=== PATIENT | male | born 2000 | race Asian ===

== ENCOUNTER 2023-03-01 18:20 | Inpatient (IN) ==
[2023-03-01 18:55] LABS: Appearance Urine Clear (Clear); Bilirubin Urine Negative (Negative); Blood Urine Negative (Negative); Color Urine Yellow; Glucose Urine UA Negative (Negative); Ketones Urine Negative (Negative); Leukocyte Esterase Urine Negative (Negative); Nitrite Urine Negative (Negative); Protein Urine Negative (Negative); Specific Gravity Urine 1.016 (1.000-1.030); Urobilinogen Urine Negative (Negative); pH Urine 5.5 (4.5-7.5)
--- NOTE | 2023-03-01 19:06 | Emergency Department Note ---
Impression & Plan Suicidal ideation ED Provider Note NAME: ORLANDO ALCAZAR AGE: 22 SEX: M : 2000 ARRIVES VIA: [employer] INFORMANT: [Patient] ED PROVIDER(S): [Justus Nguyen MD] CHIEF COMPLAINT: Mental health evaluation HISTORY OF PRESENT ILLNESS: The patient is a 22-year-old male who states that he has felt sad and depressed for about 4 months. He blames himself for some of it but he states that his studies at school, his family and his relationship with his girlfriend are to blame. He does not feel happy anymore. The patient did go to counseling at [facility] for his feelings. He actually saw a counselor yesterday. Today, he felt worse. He texted his counselor that he did not know what to do and the police were sent to his residence to check on him. He was brought for evaluation by police. The patient states that he has had some suicidal thoughts. He has thought about overdosing or using a firearm although, he has no access to firearms. The patient is currently voluntary and asking for a mental health admission. PMHx/PSHx/Social Hx: See Below PHYSICAL EXAM: GENERAL: Patient is in no acute distress. HEENT: No acute trauma, normocephalic atraumatic, mucous membranes moist, no nasal congestion. NECK: No stridor, no adenopathy, no meningismus, trachea is midline. LUNGS: Clear to auscultation bilaterally, no wheeze, no rhonchi, breath sounds equal. HEART: Without murmurs gallops or rubs, regular rate and rhythm. ABDOMEN: Soft, nontender, no peritonitis. EXTREMITIES: No cyanosis, full range of motion of all the joints without pain or difficulty. NEUROLOGIC: Oriented x 3, no acute motor or sensory deficits, no focal weakness. SKIN: No jaundice, no diaphoresis. Psychiatric: Cooperative, flat affect, voluntary. Admits to suicidal ideation with a potential plan to overdose. DIFFERENTIAL DIAGNOSIS: Psychosis, depression, anxiety, electrolyte imbalance, thyroid disorder, suicidality, among others. EMERGENCY DEPARTMENT PROCEDURES: MEDICAL DECISION MAKING: There is no leukocytosis or concerning anemia. There is a normal platelet count. No renal failure or significant electrolyte abnormality. No concerning liver enzyme elevation. The patient appeared to be in a euthyroid state. Urinalysis did not show infection. Aspirin, Tylenol and alcohol levels were undetectable. Urine tox was negative. COVID test was negative. On exam, the patient had a flattened affect and did admit to some suicidal ideation. He apparently had researched medications to take in overdose. The patient was voluntary. He was felt medically clear. The patient was seen by psychiatry case management. After some discussion, the patient did decide to sign into the psychiatric hospital voluntarily. The patient was seen by our psychiatry service, 3 S. He was accepted to their floor. The appropriate paperwork was completed and signed. Prior/Outside records/notes reviewed: None. Imaging/x-ray results per my interpretation: Chronic Medical/Social conditions affecting care: College student Care/Management discussed with: Psychiatry case management. Level of care consideration(s): After review of the information above and other included data: --I believe the patient requires escalation of care to admission DISPOSITION: Voluntary admission to the psychiatric floor Past Med/Surg History Medical History No significant medical problems Social History Smoking Status: Never smoker Preferred Language: Maltese Feels Safe at Home: Hesitant to Answer Gender Identity: Male Results & Data (ED) Vital Signs Vital Signs - 24 hr 03/01/23 18:30 03/01/23 22:03 Temperature 36.7 C Temperature Source Oral Pulse Rate 70 Pulse Rate [Right Finger] 76 Pulse Rhythm [Right Finger] Regular Pulse Strength [Right Finger] Normal Respiratory Rate 14 16 Respiratory Effort / Characteristics Non-Labored Spontaneous Respiratory Depth Normal Respiratory Pattern Regular Blood Pressure 122/86 Blood Pressure [Right Arm] 128/74 Blood Pressure Mean 98 Blood Pressure Mean [Right Arm] 92 Pulse Oximetry 97 99 Oxygen Delivery Method Room Air Room Air Sepsis New/Unexplained Change in Mental Status No Sepsis Action Taken by Nursing No Action Required Home Medications Current Medication List: was personally reviewed by me Laboratory Data Attestation: I reviewed the patient's lab results. 03/01/23 18:52 03/01/23 18:52 Lab Results 03/01/23 03/01/23 Range/Units 18:36 18:52 WBC 6.36 (4.8-10.8) K/ul RBC 5.15 (4.70-6.10) M/uL Hgb 15.3 (14.0-18.0) g/dl Hct 45.0 (42.0-52.0) % MCV 87.4 (80.0-100.0) fL MCH 29.7 (25.0-34.0) pg MCHC 34.0 (32.0-36.0) g/dL RDW Std Deviation 38.9 (36.4-46.3) fL RDW Coeff of Miguel 12.1 (11.5-14.5) % Plt Count 264 (130-400) K/uL MPV 8.4 L (9.4-12.4) fL Immature Gran % (Auto) 0.2 % Neut % (Auto) 61.5 % Lymph % (Auto) 28.1 % [place] % (Auto) 6.6 % Eos % (Auto) 3.3 % Baso % (Auto) 0.3 % Neut # (Auto) 3.91 (1.40-6.50) K/uL Lymph # (Auto) 1.79 (1.20-3.40) K/uL [place] # (Auto) 0.42 (0.11-0.59) K/uL Eos # (Auto) 0.21 (0.00-0.50) K/uL Baso # (Auto) 0.02 (0.00-0.20) K/uL Immature Gran # (Auto) 0.01 (0.01-0.20) K/uL Sodium 137 (136-145) mmol/L Potassium 4.0 (3.5-5.1) mmol/L Chloride 103 (98-107) mmol/L Carbon Dioxide 26 (21-32) mmol/L Anion Gap 8 (3-11) BUN 18 (6-23) mg/dl Creatinine 0.89 (0.6-1.4) mg/dl Est Cr Clr Drug Dosing 149.8 ml/min Est GFR ( Amer) 142.7 ml/min Est GFR (Non-Af Amer) 123.1 ml/min BUN/Creatinine Ratio 20.2 H (10-20) Glucose 82 (70-99(Fasting)) mg/dl Calcium 9.8 (8.6-10.3) mg/dl Total Bilirubin 1.1 H (0.2-1.0) mg/dl AST 10 L (13-39) U/L ALT 7 (7-52) U/L Alkaline Phosphatase 88 (34-104) U/L Total Protein 7.9 (6.0-8.3) gm/dl Albumin 4.9 (3.4-5.0) gm/dl Globulin 3.0 (2.5-4.0) gm/dl Albumin/Globulin Ratio 1.6 (0.9-2) TSH 2.322 (0.300-4.500) uIu/ml Urine Color Yellow Urine Appearance Clear (Clear) Urine pH 5.5 (4.5-7.5) Ur Specific [place] 1.016 (1.000-1.030) Urine Protein Negative (Negative) Urine Glucose (UA) Negative (Negative) Urine Ketones Negative (Negative) Urine Blood Negative (Negative) Urine Nitrite Negative (Negative) Urine Bilirubin Negative (Negative) Urine Urobilinogen Negative (Negative) Ur Leukocyte Esterase Negative (Negative) Salicylates < 3.0 L (3.0-30) mg/dl Urine Opiates Screen Neg (Neg) Ur Methadone, Qual Neg (Neg) Acetaminophen < 3 L (10-30) ug/ml Urine Barbiturates Neg (Neg) Ur Phencyclidine (PCP) Neg (Neg) U Amphetamin/Meth Scrn Neg (Neg) MDMA (Ecstasy) Screen Neg (Neg) U Benzodiazepines Scrn Neg (Neg) Ur Cocaine Metabolite Neg (Neg) U Marijuana (THC) Screen Neg (Neg) Ethyl Alcohol mg/dL < 10.0 (<10.0) mg/dl SARS-CoV-2, RNA, NAAT NEGATIVE (NEGATIVE) Discharge Plan Visit Data Chief Complaint: Mental Health Evaluation Stated Complaint: [facility] ED Provider: Justus Nguyen Discharge Problem: Suicidal ideation Patient Disposition: Admitted As Inpatient Condition: Good
[2023-03-01 19:21] LABS: Albumin Globulin Ratio 1.6 (0.9-2); Albumin Level 4.9 gm/dl (3.4-5.0); BUN Creatinine Ratio 20.2 (10-20); Basophils # (auto) 0.02 K/uL (0.00-0.20); Basophils % (auto) 0.3 %; Bilirubin,Total 1.1 mg/dl (0.2-1.0); Calcium 9.8 mg/dl (8.6-10.3); Creatinine Clr Calc Pharmacy 149.8 ml/min; Eosinophils # (auto) 0.21 K/uL (0.00-0.50); Eosinophils % (auto) 3.3 %; Est GFR (African American) 142.7 ml/min; Est GFR (Non-African American) 123.1 ml/min; Hemoglobin 15.3 g/dl (14.0-18.0); Immature Granulocytes # (auto) 0.01 K/uL (0.01-0.20); Immature Granulocytes % (auto) 0.2 %; Lymphocytes # (auto) 1.79 K/uL (1.20-3.40); Lymphocytes % (auto) 28.1 %; Mean Corpuscular Hemoglobin 29.7 pg (25.0-34.0); Mean Corpuscular Volume 87.4 fL (80.0-100.0); Mean Platelet Volume 8.4 fL (9.4-12.4); Monocytes # (auto) 0.42 K/uL (0.11-0.59); Monocytes % (auto) 6.6 %; Neutrophils # (auto) 3.91 K/uL (1.40-6.50); Neutrophils % (auto) 61.5 %; Platelet Count 264 K/uL (130-400); RDW Coefficient of Variation 12.1 % (11.5-14.5); RDW Standard Deviation 38.9 fL (36.4-46.3); Red Blood Count 5.15 M/uL (4.70-6.10); Total Protein 7.9 gm/dl (6.0-8.3); White Blood Count 6.36 K/ul (4.8-10.8)
[2023-03-01 19:27] LABS: Acetaminophen < 3 ug/ml (10-30); Salicylate < 3.0 mg/dl (3.0-30)
[2023-03-01 19:28] LABS: Amphetamines+Metham, Urine Neg (Neg); Barbiturates, Urine Neg (Neg); Benzodiazepine, Urine Neg (Neg); Cocaine, Urine Neg (Neg); MDMA (Ecstacy), Urine Neg (Neg); Marijuana, Urine Neg (Neg); Methadone, Urine Neg (Neg); Opiate, Urine Neg (Neg); Phencyclidine, Urine Neg (Neg)
[2023-03-01 19:36] LABS: Thyroid Stimulating Hormone 2.322 uIu/ml (0.300-4.500)
[2023-03-01] MEDS ORDERED: ALUMINUM/MAGNESIUM SUSP 30 ML UDC PO PRN (23:40)
[2023-03-01] MEDS ORDERED: BISMUTH SUBSALICYLATE LIQD 236 ML PO PRN (23:40)
[2023-03-01] MEDS ORDERED: hydrOXYzine HCl 25 MG TAB PO PRN ×2 (23:40)
[2023-03-01] MEDS ORDERED: MAGNESIUM HYDROXIDE SUSP 30 ML UDC PO PRN (23:40)
[2023-03-01] MEDS ORDERED: SODIUM CHLORIDE 0.65% NA SOLN 45 ML (OCEAN) PRN (23:40)
[2023-03-01] MEDS ORDERED: ACETAMINOPHEN 325 MG TAB PO PRN (23:40)
[2023-03-02] MEDS ORDERED: Patient's ALLERGY Info needs ENTERED STA (00:02)
[2023-03-02 08:22] LABS: Chol HDL Ratio 3.5 (0-5)
[2023-03-02 08:46] LABS: Folate (Folic Acid),Ser orPlas 7.92 ng/ml (>5.38)
[2023-03-02] MEDS ORDERED: CITALOPRAM 20 MG TAB PO STA (16:51)
[2023-03-02] MEDS: ERGOCALCIFEROL 50,000 UNITS 1250 MCG CAP PO SCH (18:15)
--- NOTE | 2023-03-02 22:43 | History & Physical ---
Date of Service March 02, 2023 Impression / Recommendations Impression 22 y/o man with 6-month history of worsening depression, suicidal ruminations, pervasive anxiety. He's pleasant and cooperative but profoundly depressed. He has no history of psychiatric diagnosis or treatment. Risks and benefits of, and alternatives to, the use of duloxetine (Cymbalta) for Major Depression and Generalized Anxiety Disorder symptoms were reviewed. This discussion included but was not limited to issues known potentially to be associated with use of such medication, especially at high doses or with longer use, including sedation, weight gain, GI side effects, or rarely elevated blood pressure or severe diaphoresis. Discussed the need to avoid abrupt cessation due to risk of discontinuation syndrome. The patient agreed to start a trial of duloxetine. He was found to have a significant vitamin D deficiency which will need to be treated. Overall I spent a total of 79 minutes on the floor for this admission including review of chart records, review of test results, direct evaluation of the patient [id number], counseling the patient, reconciling and ordering medication, medication education with the patient, risk assessment, discussion during interdisciplinary treatment rounds, and documentation in the electronic health record. (1) Major depressive disorder, single episode, severe without psychotic features: (2) HALIMA (generalized anxiety disorder): (3) Vitamin D deficiency: Plan The patient was admitted to the [facility] on q15 minute checks (behavioral with suicide precautions) for safety.The patient will participate in group, recreational, and milieu therapies and will be offered additional individual and family sessions as clinically appropriate. * start duloxetine 20 mg daily, titrate rapidly to target of 60 mg daily * start egocalciferol 50,000 IU twice weekly Inventory Assets Strengths: supportive relationships, has local supports, voluntary, good insight, intelligent Needs: safety and stabilization, medication adjustment, additional coping skills, outpatient services Suicide Risk Level Suicide Risk Level: High-Moderate (q15 min suicide checks) (denies current ideation but is profoundly depressed and recently preoccupied for formulating a foolproof suicide plan) Risk Factors Assessment Male: Yes : No Do You Have Access To A Gun?: No Health Problems: No Mental Health Diagnoses: No Substance Use Disorders: No Previous Attempt: No Family History of Suicide: No Previous Psychiatric Hospitalization: No Hopelessness: Yes Protective Factors Assessment : No Responsible for Young Children: No Employed: No Stable Relationships: Yes Supportive Family: Yes Good Rapport with Provider: Yes Psychiatric History Identifying Data ORLANDO ALCAZAR is a 22-year-old M who currently lives in [place] in a house with roommates, has a history of no previous psychiatric contact, and was admitted on 03/01/23 22:08 on a 201 voluntary commitment for suicidal ideation. Chief Complaint "I just can't anymore". History of Present Illness As part of a thorough review of the available medical records, I have read and confirmed the following note by the ED physician: "The patient is a 22-year-old male who states that he has felt sad and depressed for about 4 months. He blames himself for some of it but he states that his studies at school, his family and his relationship with his girlfriend are to blame. He does not feel happy anymore. The patient did go to counseling at [facility] for his feelings. He actually saw a counselor yesterday. Today, he felt worse. He texted his counselor that he did not know what to do and the police were sent to his residence to check on him. He was brought for evaluation by police. The patient states that he has had some suicidal thoughts. He has thought about overdosing or using a firearm although, he has no access to firearms." the following note by the ED psychiatric case management director: "Pt was brought to the ED via police after his counselor at [facility] received a concerning e-mail and called police to check on him. The e-mail the pt sent said, Please help me. I dont know what to do The pt reported he did not receive an e-mail back from the counselor and that police showed up at his apartment and brought him to the ED. The counselor and police did not complete any 302 paperwork and the pt came willingly with police. The pt reported he has been struggling with depression for the past few months and has been feeling really sad. He reported difficulty sleeping, anhedonia, and a decreased appetite. His stressors are school, family issues, and some difficulties with his girlfriend. He reported over the past few days, he has developed SI and the thoughts have become severe. He admitted to thinking of plans to shoot himself or overdose. The patient does not own a firearm or have access to firearms. He reported he was researching ways to overdose and decided if he moved forward with his plan, he would overdose on Fentanyl. The pt is from [place] and is here going to [facility]. He is a sophomore studying [employer]. He reported school is stressful, but his grades are okay this semester. He lives in an off campus apartment with roommates. The pt stated his mother is somewhat aware of his depression right now and actually flew to [place] from [place] [place] to be with him. She is currently staying in a hotel locally. The pt reported his mother is not aware of his SI w/a plan and she is not aware he is currently in the ED. He reported he does not wish for her to know at this time. The pt just started with [facility] this past week and he reported they are going to help him find a long-term therapist. He does not see a psychiatrist and is not on any medications. He denied a history of suicide attempts or SIB. He has never had inpatient mental health treatment. He denied D&A use and does not smoke. He denied any hallucinations or HI. " and the following note by the psychiatric liaison nurse: "No hx of psychiatric treatment.Depressed for the last few months, constant thoughts of SI, plan to OD on fentanyl, or use a gun. Pt does not own a gun. Failed the spring semester at [employer], still a student there, however, his GPA won't be able to recover for him to pursue his major. He is very distraught about that, also having conflict with his girlfriend. His family all lives in [place], he has no supports in the . [place] [facility] [place], she is concerned about him d/t minimal contact recently. Pt was not wanting to notify mom about being at the hospital and going inpatient. He doesn't want to stress her out, feels like she is already stressed about his sister's recent miscarriage. Discussed how not telling his mom where he is could potentially cause her alarming concern. Pt did reach out to her while this RN was getting orders. Prior to leaving the ER, pts mom arrived to see him. Pt made minimal eye contact with mom, provided her limited responses to her questions, minimizing his mental health struggles and what brought him to the hospital. With pts verbal permission, this RN informed his mom what has been going on, pts increased depression with suicidal thoughts. Mom was tearful, asked appropriate questions and requested to speak with [place] alone. Gave her and pt a few minutes to speak in private, both were tearful after conversation and hugged prior to pt going to . " Review of the medical record reveals no previous or outside psychiatric records. Pt has no history of psychiatric treatment. Review of pertinent labs reveals they are significant for deficient vitamin D level of 16.4 ng/mL. A urine toxicology screen was negative for all tested substrates. BAL was <10 mg/dL. Pt endorses history essentially as above. He reports roughly 6-month history of deteriorating mood, loss of motivation, reduced interest, anhedonia, fatigue, worsening sleep with daytime hypersomnia. He says that despite feeling disinterested and unmotivated he has continued to play basketball and go to the gym, though does not enjoy these activities. He is "still getting up and getting dressed in the morning" but then goes back to bed rather than going to classes. He failed all his classses last semester. He feels as if he's derailed his life because his "GPA is too low to declare for cybersecurity" and he can't see where to go from here. He and his girlfriend broke up. He's vague and possibly evasive about the reasons, but attributes this to his "mood symptoms". Pt has been going online to read about methods of suicide. He'd thought about shooting himself or overdosing on fentanyl but has access to neither and can't figure out how to get access to either. He figured he could look up fatal doses of easily-obtainable medications or substances. Pt grew up in [place] (speaks [place], Larry, Mandarin, and Cantonese). His father co-owns a shipping company and his mother "is retired". He attended [employer] (a fairly prestigious private school in [place]) for his final 3 years of high school, so has not resided in [place] for about 5 years. His girlfriend is from [facility] and he says they knew each other there. Past Psychiatric History Previous Psych History: none Current Psychiatric Diagnosis: none Previous Psych Admissions: none Do You Have Access To A Gun?: No History of Previous Suicide Attempt: No Past Medication Trials: none Allergies Allergy/AdvReac Type Severity Reaction Status Date / Time No Known Allergies Allergy Unverified 03/02/23 00:15 Alcohol History Hx of Alcohol Use Over the Past 12 Months: No AUDIT Total Score: 0 Smoking Use Have You Smoked or Used Tobacco Products in the Last 30 Days: No Smoking Status: Never smoker Substance History Hx of Prescription Med Misuse Over the Past 12 Months: No Hx of Over the Counter Med Misuse Over the Past 12 Months: No Hx of Inhalent Misuse Over the Past 12 Months: No Hx of Organic Substance Use Over the Past 12 Months: No Hx of Illegal Substances/Street Drug Use Over Past 12 Months: No Problems as a Result of Past Substance Use: None Identified Personal History Living Arrangements: Home Highest Grade Completed: High School Graduate Highest Grade Completed Comment: Pt is sophomore in [employer] at [employer], however, failed last semester and is trying to retroactively withdraw or else he will be unable to continue in this major. Marital Status: Single Number Of Children: 0 Beliefs That Will Affect Care: None Patient History Medical History (Updated 03/02/23 @ 22:47 by Neo Tian MD) Vitamin D deficiency HALIMA (generalized anxiety disorder) Major depressive disorder, single episode, severe without psychotic features No significant medical problems Social History Smoking Status: Never smoker Preferred Language: [place] Communication Ability: Effective Process Control Technician Required: No Beliefs That Will Affect Care: None Feels Safe at Home: Yes Gender Identity: Male Assistive Devices: None Review of Systems Psychiatric: + depression, + hopelessness, + anhedoni a, + abnormal sleep pattern, + suicidal ideation and + anxiety; no paranoia, no hallucinations and no substance abuse Physical Exam Psychiatric: Orientation: alert, oriented to person, oriented to place, oriented to time and cooperative Apperance: appropriately dressed, appropriately groomed and appeared stated age Eye Contact: + fair eye contact Motor Behavior: + psychomotor retardation Speech: + abnormal rate/rhythm/volume of speech (slow, quiet, brief) Affect: + blunted affect Mood: + depressed mood and + anxious mood Thought Process: linear/logical thought process Thought Content: reality based without delusions Suicidal Thoughts: denies suicidal plan and denies suicidal intent; + reports suicidal thoughts Homicidal Thoughts: denies homicidal thoughts Hallucinations: no auditory hallucinations and no visual hallucinations Cognition: recent memory grossly intact, remote memory grossly intact, attention grossly intact and language grossly intact Estimated Intelligence: average estimated intelligence Insight: + fair insight Judgment: + fair judgement Vital Signs (Past 24 Hours): Last Vital Signs Temp 36.7 C 03/01/23 18:30 Pulse 76 03/02/23 00:04 Resp 18 03/02/23 00:04 BP 128/74 03/02/23 00:04 Pulse Ox 99 03/02/23 00:04 O2 Del Method Room Air 03/02/23 00:04 Exam Statement: A physical exam was performed in the ED for the purposes of medical clearance. I accept that physical as correct and adequate for the purposes of the inpatient physical exam. Results & Data ([facility]) Laboratory Results Laboratory Results - last 24 hr 03/01/23 03/01/23 03/02/23 18:36 18:52 07:44 WBC 6.36 RBC 5.15 Hgb 15.3 Hct 45.0 MCV 87.4 MCH 29.7 MCHC 34.0 RDW Std Deviation 38.9 RDW Coeff of Miguel 12.1 Plt Count 264 MPV 8.4 L Immature Gran % (Auto) 0.2 Neut % (Auto) 61.5 Lymph % (Auto) 28.1 [place] % (Auto) 6.6 Eos % (Auto) 3.3 Baso % (Auto) 0.3 Neut # (Auto) 3.91 Lymph # (Auto) 1.79 [place] # (Auto) 0.42 Eos # (Auto) 0.21 Baso # (Auto) 0.02 Immature Gran # (Auto) 0.01 Sodium 137 Potassium 4.0 Chloride 103 Carbon Dioxide 26 Anion Gap 8 BUN 18 Creatinine 0.89 Est Cr Clr Drug Dosing 149.8 Est GFR ( Amer) 142.7 Est GFR (Non-Af Amer) 123.1 BUN/Creatinine Ratio 20.2 H Glucose 82 Calcium 9.8 Total Bilirubin 1.1 H AST 10 L ALT 7 Alkaline Phosphatase 88 Total Protein 7.9 Albumin 4.9 Globulin 3.0 Albumin/Globulin Ratio 1.6 Triglycerides 63 Cholesterol 154 LDL Cholesterol, Calc 97 VLDL Cholesterol, Calc 13 HDL Cholesterol 44 Cholesterol/HDL Ratio 3.5 Vitamin B12 386 25-OH Vitamin D Total 16.1 L Folate 7.92 TSH 2.322 Urine Color Yellow Urine Appearance Clear Urine pH 5.5 Ur Specific [place] 1.016 Urine Protein Negative Urine Glucose (UA) Negative Urine Ketones Negative Urine Blood Negative Urine Nitrite Negative Urine Bilirubin Negative Urine Urobilinogen Negative Ur Leukocyte Esterase Negative Salicylates < 3.0 L Urine Opiates Screen Neg Ur Methadone, Qual Neg Acetaminophen < 3 L Urine Barbiturates Neg Ur Phencyclidine (PCP) Neg U Amphetamin/Meth Scrn Neg MDMA (Ecstasy) Screen Neg U Benzodiazepines Scrn Neg Ur Cocaine Metabolite Neg U Marijuana (THC) Screen Neg Ethyl Alcohol mg/dL < 10.0 SARS-CoV-2, RNA, NAAT NEGATIVE Current Inpatient Medications Current Inpatient Medications: Current Inpatient Medications Acetaminophen (Acetaminophen 325 Mg Tab) 650 mg PO Q4H PRN PRN Reason: Headache or Minor Fever Stop: 03/31/23 23:39 Al Hydrox/Mg Hydrox/Simethicone (Aluminum/Magnesium Susp 30 Ml Udc) 30 ml PO Q4H PRN PRN Reason: GI Upset Stop: 03/31/23 23:39 Bismuth Subsalicylate (Bismuth Subsalicylate Liqd 236 Ml) 15 ml PO PRN PRN PRN Reason: Loose Stool Stop: 03/31/23 23:39 Citalopram Hydrobromide (Citalopram 20 Mg Tab) 10 mg PO NOW STA Stop: 03/02/23 16:52 Citalopram Hydrobromide (Citalopram 20 Mg Tab) 20 mg PO QAM SHAUNNA Stop: 04/02/23 08:59 Ergocalciferol (Ergocalciferol 50,000 Units 1250 Mcg Cap) 50,000 units PO 2XWK SHAUNNA Stop: 04/01/23 16:59 Hydroxyzine HCl (Hydroxyzine Hcl 25 Mg Tab) 50 mg PO HSZ PRN PRN Reason: Insomnia Stop: 03/31/23 23:39 Hydroxyzine HCl (Hydroxyzine Hcl 25 Mg Tab) 25 mg PO Q4H PRN PRN Reason: Anxiety Stop: 03/31/23 23:39 Magnesium Hydroxide (Magnesium Hydroxide Susp 30 Ml Udc) 30 ml PO DAILY PRN PRN Reason: Constipation Stop: 03/31/23 23:39 Sodium Chloride (Sodium Chloride 0.65% Na Soln 45 Ml (Tehama)) 1 - 2 sprays NA PRN PRN PRN Reason: Nasal Dryness/Congestion Stop: 03/31/23 23:39
[2023-03-03] MEDS ORDERED: CITALOPRAM 20 MG TAB PO SCH (09:00)
[2023-03-03] MEDS ORDERED: DULoxetine HCL 20 MG CAP PO SCH (09:00)
--- NOTE | 2023-03-03 11:26 | Psychiatric Progress Note ---
Date of Service March 03, 2023 Impression / Recommendations Impression 22 y/o man with 6-month history of worsening depression, suicidal ruminations, pervasive anxiety. He's pleasant and cooperative but profoundly depressed. He has no history of psychiatric diagnosis or treatment. Risks and benefits of, and alternatives to, the use of duloxetine (Cymbalta) for Major Depression and Generalized Anxiety Disorder symptoms were reviewed. This discussion included but was not limited to issues known potentially to be associated with use of such medication, especially at high doses or with longer use, including sedation, weight gain, GI side effects, or rarely elevated blood pressure or severe diaphoresis. Discussed the need to avoid abrupt cessation due to risk of discontinuation syndrome. The patient agreed to start a trial of duloxetine. He was found to have a significant vitamin D deficiency which will need to be treated. 03/03/2023: Remains profoundly depressed, with nearly-flat affect. He has attended groups and interacted with peers (consistent with his reports of going to the gym and playing basketball because they were expectations and not because he felt motivated or interested). Says he has tolerated low-dose duloxetine without any side effects. He reports poor sleep with multiple awakenings. Discussed several options to address this at length. Pt says he's done well with melatonin 5 mg in the past (we have only 3 mg size here, so could give 6 mg). (1) Major depressive disorder, single episode, severe without psychotic features: (2) HALIMA (generalized anxiety disorder): (3) Vitamin D deficiency: Plan 03/03/2023: * increase duloxetine to 40 mg daily, continue rapid titration to target of 60 mg daily * start melatonin 5 mg QHS * continue egocalciferol 50,000 IU twice weekly 03/02/2023: The patient was admitted to the [facility] ([facility]) on q15 minute checks (behavioral with suicide precautions) for safety.The patient will participate in group, recreational, and milieu therapies and will be offered additional individual and family sessions as clinically appropriate. * start duloxetine 20 mg daily, titrate rapidly to target of 60 mg daily * start egocalciferol 50,000 IU twice weekly Inventory Assets Strengths: supportive relationships, has local supports, voluntary, good insight, intelligent Needs: safety and stabilization, medication adjustment, additional coping skills, outpatient services Suicide Risk Level Suicide Risk Level: High-Moderate (q15 min suicide checks) (denies current ideation but is profoundly depressed and recently preoccupied for formulating a foolproof suicide plan) Risk Factors Assessment Male: Yes : No Do You Have Access To A Gun?: No Health Problems: No Mental Health Diagnoses: No Substance Use Disorders: No Previous Attempt: No Family History of Suicide: No Previous Psychiatric Hospitalization: No Hopelessness: Yes Protective Factors Assessment : No Responsible for Young Children: No Employed: No Stable Relationships: Yes Supportive Family: Yes Good Rapport with Provider: Yes Interval History Chief Complaint "Not much different". Review of Systems Sleep Information Total Hours of Sleep: 5 Sleep Comments: Pt up reading in day room until 0030 Meal Information Percent Meal Consumed - Breakfast: 100 Percent Meal Consumed - Lunch: 100 Percent Meal Consumed - Dinner: 100 Subjective Subjective The patient was seen and assessed and interval progress reviewed in a multidisciplinary team meeting with the treatment team. For details, see the "Impression" section. Overall I spent a total of 88 minutes for this inpatient follow-up including review of chart records, review of test results, direct evaluation of the patient [id number], counseling the patient, reconciling and ordering medication, medication education with the patient, risk assessment, discussion during interdisciplinary treatment rounds, and documentation in the electronic health record. Physical Exam Psychiatric Orientation: alert, oriented to person, oriented to place, oriented to time and cooperative Apperance: appropriately dressed, appropriately groomed and appeared stated age Eye Contact: + fair eye contact Motor Behavior: + psychomotor retardation Speech: + abnormal rate/rhythm/volume of speech (slow, quiet, brief) Affect: + blunted affect Mood: + depressed mood and + anxious mood Thought Process: linear/logical thought process Thought Content: reality based without delusions Suicidal Thoughts: denies suicidal plan and denies suicidal intent; + reports suicidal thoughts Homicidal Thoughts: denies homicidal thoughts Hallucinations: no auditory hallucinations and no visual hallucinations Cognition: recent memory grossly intact, remote memory grossly intact, attention grossly intact and language grossly intact Estimated Intelligence: average estimated intelligence Insight: + fair insight Judgment: + fair judgement Vital Signs (Past 24 Hours) Last Vital Signs Temp 36.6 C 03/03/23 06:50 Pulse 70 03/03/23 06:50 Resp 16 03/03/23 06:50 BP 107/70 03/03/23 06:50 Pulse Ox 96 03/03/23 06:50 O2 Del Method Room Air 03/03/23 06:50 Results & Data ([facility]) Current Inpatient Medications Current Inpatient Medications: Current Inpatient Medications Acetaminophen (Acetaminophen 325 Mg Tab) 650 mg PO Q4H PRN PRN Reason: Headache or Minor Fever Stop: 03/31/23 23:39 Al Hydrox/Mg Hydrox/Simethicone (Aluminum/Magnesium Susp 30 Ml Udc) 30 ml PO Q4H PRN PRN Reason: GI Upset Stop: 03/31/23 23:39 Bismuth Subsalicylate (Bismuth Subsalicylate Liqd 236 Ml) 15 ml PO PRN PRN PRN Reason: Loose Stool Stop: 03/31/23 23:39 Duloxetine HCl (Duloxetine Hcl 20 Mg Cap) 20 mg PO QAM [facility] Stop: 04/02/23 08:59 Last Admin: 03/03/23 09:29 Dose: 20 mg Ergocalciferol (Ergocalciferol 50,000 Units 1250 Mcg Cap) 50,000 units PO SuWe@0900 [facility] Stop: 04/01/23 16:59 Last Admin: 03/02/23 18:15 Dose: 50,000 units Hydroxyzine HCl (Hydroxyzine Hcl 25 Mg Tab) 50 mg PO HSZ PRN PRN Reason: Insomnia Stop: 03/31/23 23:39 Hydroxyzine HCl (Hydroxyzine Hcl 25 Mg Tab) 25 mg PO Q4H PRN PRN Reason: Anxiety Stop: 03/31/23 23:39 Magnesium Hydroxide (Magnesium Hydroxide Susp 30 Ml Udc) 30 ml PO DAILY PRN PRN Reason: Constipation Stop: 03/31/23 23:39 Sodium Chloride (Sodium Chloride 0.65% Na Soln 45 Ml ([place])) 1 - 2 sprays NA PRN PRN PRN Reason: Nasal Dryness/Congestion Stop: 03/31/23 23:39 Mental Health & Subst Abuse Tx Therapist Name of Therapist: Seeing [facility] temporarily
[2023-03-04] MEDS: MELATONIN 3 MG TAB PO PRN ×2 (00:37→23:32)
[2023-03-04] MEDS: DULoxetine HCL 20 MG CAP PO SCH (09:23)
--- NOTE | 2023-03-04 12:10 | Psychiatric Progress Note ---
Date of Service March 04, 2023 Impression / Recommendations Impression 22 y/o man with 6-month history of worsening depression, suicidal ruminations, pervasive anxiety. He's pleasant and cooperative but profoundly depressed. He has no history of psychiatric diagnosis or treatment. Risks and benefits of, and alternatives to, the use of duloxetine (Cymbalta) for Major Depression and Generalized Anxiety Disorder symptoms were reviewed. This discussion included but was not limited to issues known potentially to be associated with use of such medication, especially at high doses or with longer use, including sedation, weight gain, GI side effects, or rarely elevated blood pressure or severe diaphoresis. Discussed the need to avoid abrupt cessation due to risk of discontinuation syndrome. The patient agreed to start a trial of duloxetine. He was found to have a significant vitamin D deficiency which will need to be treated. 03/04/2023: Last night reported back pain to nurses and requested "something stronger" than acetaminophen. It started when he was sitting down in a chair. This morning he reported it was worse and prevented him from attending groups. He describes a "sharp" pain affecting nearly his entire back and is worsened by movement, though not by any specific movement. He denies having had such pain before. He moves gingerly getting out of bed but moves toward the exam room faster than I'm able to follow. He does not exhibit pain behavior when getting on exam table. No swelling, erythema, or other visible signs of inflammation on back. There is no point tenderness over spine or ribs. No trigger points are identified. No change in pain is reported on back flexion or extension, leaning to either side, or twisting in either direction. The same is true of neck movements. Raising his extended arms above the level of his shoulder reproduces the pain; no other arm movements do. Affect remains essentially flat, with slow, quiet, brief, and uninflected speech. He does think he slept better with melatonin and would like to continue it. He notes no side effects that he can attribute to duloxetine and would like to continue dose titration. 03/03/2023: Remains profoundly depressed, with nearly-flat affect. He has attended groups and interacted with peers (consistent with his reports of going to the gym and playing basketball because they were expectations and not because he felt motivated or interested). Says he has tolerated low-dose duloxetine without any side effects. He reports poor sleep with multiple awakenings. Discussed several options to address this at length. Pt says he's done well with melatonin 5 mg in the past (we have only 3 mg size here, so could give 6 mg). (1) Major depressive disorder, single episode, severe without psychotic features: (2) HALIMA (generalized anxiety disorder): (3) Vitamin D deficiency: (4) Back pain: Plan 03/04/2023: * increase duloxetine to 60 mg daily * continue melatonin 5 mg QHS * continue egocalciferol 50,000 IU twice weekly * naproxen 375 mg BID * diclofenac gel to affected area BID 03/03/2023: * increase duloxetine to 40 mg daily, continue rapid titration to target of 60 mg daily * start melatonin 5 mg QHS * continue egocalciferol 50,000 IU twice weekly 03/02/2023: The patient was admitted to the [facility] ([facility]) on q15 minute checks (behavioral with suicide precautions) for safety.The patient will participate in group, recreational, and milieu therapies and will be offered additional individual and family sessions as clinically appropriate. * start duloxetine 20 mg daily, titrate rapidly to target of 60 mg daily * start egocalciferol 50,000 IU twice weekly Inventory Assets Strengths: supportive relationships, has local supports, voluntary, good insight, intelligent Needs: safety and stabilization, medication adjustment, additional coping skills, outpatient services Suicide Risk Level Suicide Risk Level: High-Moderate (q15 min suicide checks) (denies current ideation but is profoundly depressed and recently preoccupied for formulating a foolproof suicide plan) Risk Factors Assessment Male: Yes : No Do You Have Access To A Gun?: No Health Problems: No Mental Health Diagnoses: No Substance Use Disorders: No Previous Attempt: No Family History of Suicide: No Previous Psychiatric Hospitalization: No Hopelessness: Yes Protective Factors Assessment : No Responsible for Young Children: No Employed: No Stable Relationships: Yes Supportive Family: Yes Good Rapport with Provider: Yes Interval History Identifying Information ORLANDO ALCAZAR is a 22-year-old M who currently lives in [place] in a house with roommates, has a history of no previous psychiatric contact, and was admitted on 03/01/23 22:08 on a 201 voluntary commitment for suicidal ideation. Chief Complaint "My back hurts too much". Review of Systems Sleep Information Total Hours of Sleep: 5 Sleep Comments: Pt up reading in day room until 003 Meal Information Percent Meal Consumed - Breakfast: 100 Percent Meal Consumed - Lunch: 100 Percent Meal Consumed - Dinner: 100 Subjective Subjective The patient was seen and assessed and interval progress reviewed in a multidisciplinary team meeting with the treatment team. For details, see the "Impression" section. Overall I spent a total of 55 minutes for this inpatient follow-up including review of chart records, review of test results, direct evaluation of the patient [id number], counseling the patient, reconciling and ordering medication, medication education with the patient, risk assessment, discussion during interdisciplinary treatment rounds, and documentation in the electronic health record. Physical Exam Psychiatric Orientation: alert, oriented to person, oriented to place, oriented to time and cooperative Apperance: appropriately dressed, appropriately groomed and appeared stated age Eye Contact: + fair eye contact Motor Behavior: + psychomotor retardation Speech: + abnormal rate/rhythm/volume of speech (slow, quiet, brief) Affect: + blunted affect Mood: + depressed mood and + anxious mood Thought Process: linear/logical thought process Thought Content: reality based without delusions Suicidal Thoughts: denies suicidal plan and denies suicidal intent; + reports suicidal thoughts Homicidal Thoughts: denies homicidal thoughts Hallucinations: no auditory hallucinations and no visual hallucinations Cognition: recent memory grossly intact, remote memory grossly intact, attention grossly intact and language grossly intact Estimated Intelligence: average estimated intelligence Insight: + fair insight Judgment: + fair judgement Vital Signs (Past 24 Hours) Last Vital Signs Temp 37.1 C 03/04/23 11:48 Pulse 68 03/04/23 11:48 Resp 14 03/04/23 11:48 BP 115/75 03/04/23 11:48 Pulse Ox 98 03/04/23 11:48 O2 Del Method Room Air 03/04/23 11:48 Results & Data (U) Current Inpatient Medications Current Inpatient Medications: Current Inpatient Medications Acetaminophen (Acetaminophen 325 Mg Tab) 650 mg PO Q4H PRN PRN Reason: Headache or Minor Fever Stop: 03/31/23 23:39 Last Admin: 03/04/23 09:54 Dose: 650 mg Al Hydrox/Mg Hydrox/Simethicone (Aluminum/Magnesium Susp 30 Ml Udc) 30 ml PO Q4H PRN PRN Reason: GI Upset Stop: 03/31/23 23:39 Bismuth Subsalicylate (Bismuth Subsalicylate Liqd 236 Ml) 15 ml PO PRN PRN PRN Reason: Loose Stool Stop: 03/31/23 23:39 Duloxetine HCl (Duloxetine Hcl 20 Mg Cap) 40 mg PO QAM [facility] Stop: 04/03/23 08:59 Last Admin: 03/04/23 09:23 Dose: 40 mg Ergocalciferol (Ergocalciferol 50,000 Units 1250 Mcg Cap) 50,000 units PO SuWe@0900 [facility] Stop: 04/01/23 16:59 Last Admin: 03/02/23 18:15 Dose: 50,000 units Hydroxyzine HCl (Hydroxyzine Hcl 25 Mg Tab) 50 mg PO HSZ PRN PRN Reason: Insomnia Stop: 03/31/23 23:39 Hydroxyzine HCl (Hydroxyzine Hcl 25 Mg Tab) 25 mg PO Q4H PRN PRN Reason: Anxiety Stop: 03/31/23 23:39 Magnesium Hydroxide (Magnesium Hydroxide Susp 30 Ml Udc) 30 ml PO DAILY PRN PRN Reason: Constipation Stop: 03/31/23 23:39 Melatonin (Melatonin 3 Mg Tab) 6 mg PO HS PRN PRN Reason: Sleep Stop: 04/02/23 17:17 Last Admin: 03/04/23 00:37 Dose: 6 mg Sodium Chloride (Sodium Chloride 0.65% Na Soln 45 Ml ([place])) 1 - 2 sprays NA PRN PRN PRN Reason: Nasal Dryness/Congestion Stop: 03/31/23 23:39 Mental Health & Subst Abuse Tx Therapist Name of Therapist: Seeing [facility] temporarily (4) Back pain Back pain location: back pain in unspecified location Chronicity: acute Back pain laterality: bilateral Qualified Code(s): M54.9 - Dorsalgia, unspecified
[2023-03-04] MEDS: NAPROXEN 375 MG TAB PO SCH ×2 (13:40→17:32)
[2023-03-04] MEDS: DICLOFENAC SOD 1% GEL 100 GM TUBE EXT SCH ×2 (13:40→22:57)
[2023-03-05] MEDS: DICLOFENAC SOD 1% GEL 100 GM TUBE EXT SCH (09:00)
[2023-03-05] MEDS: DULoxetine HCL 20 MG CAP PO SCH (09:00)
[2023-03-05] MEDS: NAPROXEN 375 MG TAB PO SCH (09:00)
[2023-03-05] MEDS: ERGOCALCIFEROL 50,000 UNITS 1250 MCG CAP PO SCH (09:00)
--- NOTE | 2023-03-05 13:53 | Psychiatric Progress Note ---
Date of Service March 05, 2023 Impression / Recommendations Impression 22 y/o man with 6-month history of worsening depression, suicidal ruminations, pervasive anxiety. He's pleasant and cooperative but profoundly depressed. He has no history of psychiatric diagnosis or treatment. Risks and benefits of, and alternatives to, the use of duloxetine (Cymbalta) for Major Depression and Generalized Anxiety Disorder symptoms were reviewed. This discussion included but was not limited to issues known potentially to be associated with use of such medication, especially at high doses or with longer use, including sedation, weight gain, GI side effects, or rarely elevated blood pressure or severe diaphoresis. Discussed the need to avoid abrupt cessation due to risk of discontinuation syndrome. The patient agreed to start a trial of duloxetine. He was found to have a significant vitamin D deficiency which will need to be treated. 03/05/2023: Slept "OK", thinks "melatonin is working". Remains laconic, reserved, but has been interacting a fair amount with peers. Back pain has "more or less" resolved, so have switched analgesics from scheduled to PRN. Despite denying any spasms, pt asks about a muscle relaxer. Tolerating increased duloxetine 60 mg daily with no reported side effects so plan to continue this dose. 03/04/2023: Last night reported back pain to nurses and requested "something stronger" than acetaminophen. It started when he was sitting down in a chair. T his morning he reported it was worse and prevented him from attending groups. He describes a "sharp" pain affecting nearly his entire back and is worsened by movement, though not by any specific movement. He denies having had such pain before. He moves gingerly getting out of bed but moves toward the exam room faster than I'm able to follow. He does not exhibit pain behavior when getting on exam table. No swelling, erythema, or other visible signs of inflammation on back. There is no point tenderness over spine or ribs. No trigger points are identified. No change in pain is reported on back flexion or extension, leaning to either side, or twisting in either direction. The same is true of neck movements. Raising his extended arms above the level of his shoulder reproduces the pain; no other arm movements do. Affect remains essentially flat, with slow, quiet, brief, and uninflected speech. He does think he slept better with melatonin and would like to continue it. He notes no side effects that he can attribute to duloxetine and would like to continue dose titration. 03/03/2023: Remains profoundly depressed, with nearly-flat affect. He has attended groups and interacted with peers (consistent with his reports of going to the gym and playing basketball because they were expectations and not because he felt motivated or interested). Says he has tolerated low-dose duloxetine without any side effects. He reports poor sleep with multiple awakenings. Discussed several options to address this at length. Pt says he's done well with melatonin 5 mg in the past (we have only 3 mg size here, so could give 6 mg). (1) Major depressive disorder, single episode, severe without psychotic features: (2) HALIMA (generalized anxiety disorder): (3) Vitamin D deficiency: (4) Back pain: Plan 03/05/2023: * continue duloxetine 60 mg daily - increased 03/04/2023, increased 03/03/2023 to 40 mg, started 03/02/2023 at 20 mg * continue melatonin 5 mg QHS * continue ergocalciferol 50,000 IU twice weekly * change naproxen 375 mg BID from scheduled to PRN * change diclofenac gel to affected area BID from scheduled to PRN 03/04/2023: * increase duloxetine to 60 mg daily * continue melatonin 5 mg QHS * continue ergocalciferol 50,000 IU twice weekly * naproxen 375 mg BID * diclofenac gel to affected area BID 03/03/2023: * increase duloxetine to 40 mg daily, continue rapid titration to target of 60 mg daily * start melatonin 5 mg QHS * continue ergocalciferol 50,000 IU twice weekly 03/02/2023: The patient was admitted to the [facility] ([facility]) on q15 minute checks (behavioral with suicide precautions) for safety.The patient will participate in group, recreational, and milieu therapies and will be offered additional individual and family sessions as clinically appropriate. * start duloxetine 20 mg daily, titrate rapidly to target of 60 mg daily * start ergocalciferol 50,000 IU twice weekly Inventory Assets Strengths: supportive relationships, has local supports, voluntary, good insight, intelligent Needs: safety and stabilization, medication adjustment, additional coping skills, outpatient services Suicide Risk Level Suicide Risk Level: High-Moderate (q15 min suicide checks) (denies current ideation but is profoundly depressed and recently preoccupied for formulating a foolproof suicide plan) Risk Factors Assessment Male: Yes : No Do You Have Access To A Gun?: No Health Problems: No Mental Health Diagnoses: No Substance Use Disorders: No Previous Attempt: No Family History of Suicide: No Previous Psychiatric Hospitalization: No Hopelessness: Yes Protective Factors Assessment : No Responsible for Young Children: No Employed: No Stable Relationships: Yes Supportive Family: Yes Good Rapport with Provider: Yes Interval History Identifying Information ORLANDO ALCAZAR is a 22-year-old M who currently lives in [place] in a house with roommates, has a history of no previous psychiatric contact, and was admitted on 03/01/23 22:08 on a 201 voluntary commitment for suicidal ideation. Chief Complaint "Maybe a little better?". Review of Systems Sleep Information Total Hours of Sleep: 4.5 Sleep Comments: Pt requested PRN Melatonin for sleep. Meal Information Percent Meal Consumed - Breakfast: 100 Percent Meal Consumed - Lunch: 100 Percent Meal Consumed - Dinner: 100 Subjective Subjective The patient was seen and assessed and interval progress reviewed in a multidisciplinary team meeting with the treatment team. For details, see the "Impression" section. Overall I spent a total of 58 minutes for this inpatient follow-up including review of chart records, direct evaluation of the patient [id number], counseling the patient, medication education with the patient, risk assessment, discussion during interdisciplinary treatment rounds, and documentation in the electronic health record. Physical Exam Psychiatric Orientation: alert, oriented to person, oriented to place, oriented to time and cooperative Apperance: appropriately dressed, appropriately groomed and appeared stated age Eye Contact: + fair eye contact Motor Behavior: + psychomotor retardation Speech: + abnormal rate/rhythm/volume of speech (slow, quiet, brief) Affect: + blunted affect Mood: + depressed mood and + anxious mood Thought Process: linear/logical thought process Thought Content: reality based without delusions Suicidal Thoughts: denies suicidal plan and denies suicidal intent; + reports suicidal thoughts Homicidal Thoughts: denies homicidal thoughts Hallucinations: no auditory hallucinations and no visual hallucinations Cognition: recent memory grossly intact, remote memory grossly intact, attention grossly intact and language grossly intact Estimated Intelligence: average estimated intelligence Insight: + fair insight Judgment: + fair judgement Vital Signs (Past 24 Hours) Last Vital Signs Temp 36.7 C 03/05/23 06:34 Pulse 78 03/05/23 06:34 Resp 16 03/05/23 06:34 BP 112/65 03/05/23 06:34 Pulse Ox 98 03/04/23 11:48 O2 Del Method Room Air 03/04/23 11:48 Results & Data ([facility] [[email or web address] Current Inpatient Medications Current Inpatient Medications: Current Inpatient Medications Acetaminophen (Acetaminophen 325 Mg Tab) 650 mg PO Q4H PRN PRN Reason: Headache or Minor Fever Stop: 03/31/23 23:39 Last Admin: 03/04/23 09:54 Dose: 650 mg Al Hydrox/Mg Hydrox/Simethicone (Aluminum/Magnesium Susp 30 Ml Udc) 30 ml PO Q4H PRN PRN Reason: GI Upset Stop: 03/31/23 23:39 Bismuth Subsalicylate (Bismuth Subsalicylate Liqd 236 Ml) 15 ml PO PRN PRN PRN Reason: Loose Stool Stop: 03/31/23 23:39 Diclofenac Sodium (Diclofenac Sod 1% Gel 100 Gm Tube) 2 gm EXT BID [facility]; Protocol Stop: 04/03/23 12:29 Last Admin: 03/05/23 09:00 Dose: 2 gm Duloxetine HCl (Duloxetine Hcl 20 Mg Cap) 40 mg PO QAM [facility] Stop: 04/03/23 08:59 Last Admin: 03/05/23 09:00 Dose: 40 mg Ergocalciferol (Ergocalciferol 50,000 Units 1250 Mcg Cap) 50,000 units PO SuWe@0900 [facility] Stop: 04/01/23 16:59 Last Admin: 03/05/23 09:00 Dose: 50,000 units Hydroxyzine HCl (Hydroxyzine Hcl 25 Mg Tab) 50 mg PO HSZ PRN PRN Reason: Insomnia Stop: 03/31/23 23:39 Hydroxyzine HCl (Hydroxyzine Hcl 25 Mg Tab) 25 mg PO Q4H PRN PRN Reason: Anxiety Stop: 03/31/23 23:39 Magnesium Hydroxide (Magnesium Hydroxide Susp 30 Ml Udc) 30 ml PO DAILY PRN PRN Reason: Constipation Stop: 03/31/23 23:39 Melatonin (Melatonin 3 Mg Tab) 6 mg PO HS PRN PRN Reason: Sleep Stop: 04/02/23 17:17 Last Admin: 03/04/23 23:32 Dose: 6 mg Naproxen (Naproxen 375 Mg Tab) 375 mg PO BIDM SHAUNNA Stop: 04/03/23 12:29 Last Admin: 03/05/23 09:00 Dose: 375 mg Sodium Chloride (Sodium Chloride 0.65% Na Soln 45 Ml ([place])) 1 - 2 sprays NA PRN PRN PRN Reason: Nasal Dryness/Congestion Stop: 03/31/23 23:39 Mental Health & Subst Abuse Tx Therapist Name of Therapist: Seeing [facility] temporarily (4) Back pain Back pain laterality: bilateral Back pain location: back pain in unspecified location Chronicity: acute Qualified Code(s): M54.9 - Dorsalgia, unspecified
[2023-03-05] MEDS ORDERED: NAPROXEN 375 MG TAB PO PRN (13:54)
[2023-03-05] MEDS ORDERED: DICLOFENAC SOD 1% GEL 100 GM TUBE EXT PRN (13:54)
[2023-03-06] MEDS: MELATONIN 3 MG TAB PO PRN (00:02)
[2023-03-06] MEDS: DULoxetine HCL 60 MG CAP PO SCH (09:33)
--- NOTE | 2023-03-06 10:34 | Psychiatric Progress Note ---
Date of Service March 06, 2023 Impression / Recommendations Impression 22 y/o man with 6-month history of worsening depression, suicidal ruminations, pervasive anxiety. He's pleasant and cooperative but profoundly depressed. He has no history of psychiatric diagnosis or treatment. Risks and benefits of, and alternatives to, the use of duloxetine (Cymbalta) for Major Depression and Generalized Anxiety Disorder symptoms were reviewed. This discussion included but was not limited to issues known potentially to be associated with use of such medication, especially at high doses or with longer use, including sedation, weight gain, GI side effects, or rarely elevated blood pressure or severe diaphoresis. Discussed the need to avoid abrupt cessation due to risk of discontinuation syndrome. The patient agreed to start a trial of duloxetine. He was found to have a significant vitamin D deficiency which will need to be treated. 03/06/2023: In contrast to last night, slept "pretty poorly" (nurses documented 4.75 hr) and feels tired today. He'd like to "try something else". Discussed trazodone for sleep, including rare risk of priapism. Back currently feels "fine". Rates current mood as "90%" on a scale where 100% is "completely normal for you", but only 60% if 100% represents "what you think your normal mood should be". He denies any hopelessness or suicidal thoughts. Has a family meeting tomorrow and he'd like to consider discharge following that. 03/05/2023: Slept "OK", thinks "melatonin is working". Remains laconic, reserved, but has been interacting a fair amount with peers. Back pain has "more or less" resolved, so have switched analgesics from scheduled to PRN. Despite denying any spasms, pt asks about a muscle relaxer. Tolerating increased duloxetine 60 mg daily with no reported side effects so plan to continue this dose. 03/04/2023: Last night reported back pain to nurses and requested "something stronger" than acetaminophen. It started when he was sitting down in a chair. This morning he reported it was worse and prevented him from attending groups. He describes a "sharp" pain affecting nearly his entire back and is worsened by movement, though not by any specific movement. He denies having had such pain before. He moves gingerly getting out of bed but moves toward the exam room faster than I'm able to follow. He does not exhibit pain behavior when getting on exam table. No swelling, erythema, or other visible signs of inflammation on back. There is no point tenderness over spine or ribs. No trigger points are identified. No change in pain is reported on back flexion or extension, leaning to either side, or twisting in either direction. The same is true of neck movements. Raising his extended arms above the level of his shoulder reproduces the pain; no other arm movements do. Affect remains essentially flat, with slow, quiet, brief, and uninflected speech. He does think he slept better with melatonin and would like to continue it. He notes no side effects that he can attribute to duloxetine and would like to continue dose titration. 03/03/2023: Remains profoundly depressed, with nearly-flat affect. He has attended groups and interacted with peers (consistent with his reports of going to the gym and playing basketball because they were expectations and not because he felt motivated or interested). Says he has tolerated low-dose duloxetine without any side effects. He reports poor sleep with multiple awakenings. Discussed several options to address this at length. Pt says he's done well with melatonin 5 mg in the past (we have only 3 mg size here, so could give 6 mg). (1) Major depressive disorder, single episode, severe without psychotic features: (2) HALIMA (generalized anxiety disorder): (3) Vitamin D deficiency: (4) Back pain: Plan 03/06/2023: * continue duloxetine 60 mg daily - increased 03/04/2023, increased 03/03/2023 to 40 mg, started 03/02/2023 at 20 mg * stop melatonin 5 mg QHS * trial trazodone 100 mg QHS with repeat of 50 mg if not asleep within 1 hour * continue ergocalciferol 50,000 IU twice weekly * continue naproxen 375 mg BID PRN * continue diclofenac gel to affected area BID PRN * family meeting tomorrow, likely followed by discharge 03/05/2023: * continue duloxetine 60 mg daily - increased 03/04/2023, increased 03/03/2023 to 40 mg, started 03/02/2023 at 20 mg * continue melatonin 5 mg QHS * continue ergocalciferol 50,000 IU twice weekly * change naproxen 375 mg BID from scheduled to PRN * change diclofenac gel to affected area BID from scheduled to PRN 03/04/2023: * increase duloxetine to 60 mg daily * continue melatonin 5 mg QHS * continue ergocalciferol 50,000 IU twice weekly * naproxen 375 mg BID * diclofenac gel to affected area BID 03/03/2023: * increase duloxetine to 40 mg daily, continue rapid titration to target of 60 mg daily * start melatonin 5 mg QHS * continue ergocalciferol 50,000 IU twice weekly 03/02/2023: The patient was admitted to the [facility] ([facility] mental health unit) on q15 minute checks (behavioral with suicide precautions) for safety.The patient will participate in group, recreational, and milieu therapies and will be offered additional individual and family sessions as clinically appropriate. * start duloxetine 20 mg daily, titrate rapidly to target of 60 mg daily * start ergocalciferol 50,000 IU twice weekly Inventory Assets Strengths: supportive relationships, has local supports, voluntary, good insight, intelligent Needs: safety and stabilization, medication adjustment, additional coping skills, outpatient services Suicide Risk Level Suicide Risk Level: High-Moderate (q15 min suicide checks) (denies current ideation but is profoundly depressed and recently preoccupied for formulating a foolproof suicide plan) Risk Factors Assessment Male: Yes : No Do You Have Access To A Gun?: No Health Problems: No Mental Health Diagnoses: No Substance Use Disorders: No Previous Attempt: No Family History of Suicide: No Previous Psychiatric Hospitalization: No Hopelessness: Yes Protective Factors Assessment : No Responsible for Young Children: No Employed: No Stable Relationships: Yes Supportive Family: Yes Good Rapport with Provider: Yes Interval History Identifying Information ORLANDO ALCAZAR is a 22-year-old M who currently lives in [place] in a house with roommates, has a history of no previous psychiatric contact, and was admitted on 03/01/23 22:08 on a 201 voluntary commitment for suicidal ideation. Chief Complaint "I think I'm better". Review of Systems Sleep Information Total Hours of Sleep: 4.75 Sleep Comments: PRN 6mg Melatonin 0002 Meal Information Percent Meal Consumed - Breakfast: 0 Percent Meal Consumed - Lunch: 100 Percent Meal Consumed - Dinner: 100 Subjective Subjective The patient was seen and assessed and interval progress reviewed in a multidisciplinary team meeting with the treatment team. For details, see the "Impression" section. Overall I spent a total of 43 minutes for this inpatient follow-up including review of chart records, direct evaluation of the patient [id number], counseling the patient, reconciling and ordering medication, medication education with the patient, risk assessment, discussion during interdisciplinary treatment rounds, and documentation in the electronic health record. Physical Exam Psychiatric Orientation: alert, oriented to person, oriented to place, oriented to time and cooperative Apperance: appropriately dressed, appropriately groomed and appeared stated age Eye Contact: + fair eye contact Motor Behavior: + psychomotor retardation Speech: + abnormal rate/rhythm/volume of speech (slow, quiet, brief) Affect: + blunted affect Mood: + depressed mood and + anxious mood Thought Process: linear/logical thought process Thought Content: reality based without delusions Suicidal Thoughts: denies suicidal plan and denies suicidal intent; + reports suicidal thoughts Homicidal Thoughts: denies homicidal thoughts Hallucinations: no auditory hallucinations and no visual hallucinations Cognition: recent memory grossly intact, remote memory grossly intact, attention grossly intact and language grossly intact Estimated Intelligence: average estimated intelligence Insight: + fair insight Judgment: + fair judgement Vital Signs (Past 24 Hours) Last Vital Signs Temp 36.6 C 03/06/23 06:00 Pulse 80 03/06/23 07:07 Resp 16 03/06/23 06:00 BP 112/74 03/06/23 07:07 Pulse Ox 98 03/04/23 11:48 O2 Del Method Room Air 03/04/23 11:48 Results & Data (U) Current Inpatient Medications Current Inpatient Medications: Current Inpatient Medications Acetaminophen (Acetaminophen 325 Mg Tab) 650 mg PO Q4H PRN PRN Reason: Headache or Minor Fever Stop: 03/31/23 23:39 Last Admin: 03/04/23 09:54 Dose: 650 mg Al Hydrox/Mg Hydrox/Simethicone (Aluminum/Magnesium Susp 30 Ml Udc) 30 ml PO Q4H PRN PRN Reason: GI Upset Stop: 03/31/23 23:39 Bismuth Subsalicylate (Bismuth Subsalicylate Liqd 236 Ml) 15 ml PO PRN PRN PRN Reason: Loose Stool Stop: 03/31/23 23:39 Diclofenac Sodium (Diclofenac Sod 1% Gel 100 Gm Tube) 2 gm EXT BID PRN; Protocol PRN Reason: Pain Stop: 04/03/23 12:29 Duloxetine HCl (Duloxetine Hcl 60 Mg Cap) 60 mg PO QAM SHAUNNA Stop: 04/05/23 08:59 Last Admin: 03/06/23 09:33 Dose: 60 mg Ergocalciferol (Ergocalciferol 50,000 Units 1250 Mcg Cap) 50,000 units PO SuW e@0900 SHAUNNA Stop: 04/01/23 16:59 Last Admin: 03/05/23 09:00 Dose: 50,000 units Hydroxyzine HCl (Hydroxyzine Hcl 25 Mg Tab) 50 mg PO HSZ PRN PRN Reason: Insomnia Stop: 03/31/23 23:39 Hydroxyzine HCl (Hydroxyzine Hcl 25 Mg Tab) 25 mg PO Q4H PRN PRN Reason: Anxiety Stop: 03/31/23 23:39 Magnesium Hydroxide (Magnesium Hydroxide Susp 30 Ml Udc) 30 ml PO DAILY PRN PRN Reason: Constipation Stop: 03/31/23 23:39 Melatonin (Melatonin 3 Mg Tab) 6 mg PO HS PRN PRN Reason: Sleep Stop: 04/02/23 17:17 Last Admin: 03/06/23 00:02 Dose: 6 mg Naproxen (Naproxen 375 Mg Tab) 375 mg PO BIDM PRN PRN Reason: Pain Stop: 04/03/23 12:29 Sodium Chloride (Sodium Chloride 0.65% Na Soln 45 Ml ([place])) 1 - 2 sprays NA PRN PRN PRN Reason: Nasal Dryness/Congestion Stop: 03/31/23 23:39 Mental Health & Subst Abuse Tx Therapist Name of Therapist: Seeing [facility] temporarily (4) Back pain Back pain laterality: bilateral Back pain location: back pain in unspecified location Chronicity: acute Qualified Code(s): M54.9 - Dorsalgia, unspecified
[2023-03-06] MEDS ORDERED: traZODone HCL 50 MG TAB PO PRN (15:29)
[2023-03-06] MEDS ORDERED: traZODone HCL 100 MG TAB PO SCH (22:00)
[2023-03-07] MEDS: DULoxetine HCL 60 MG CAP PO SCH (08:59)
--- NOTE | 2023-03-07 10:47 | Discharge Summary ---
Date of Service March 07, 2023 History of Present Illness As part of a thorough review of the available medical records, I have read and confirmed the following note by the ED physician: "The patient is a 22-year-old male who states that he has felt sad and depressed for about 4 months. He blames himself for some of it but he states that his studies at school, his family and his relationship with his girlfriend are to blame. He does not feel happy anymore. The patient did go to counseling at [facility] for his feelings. He actually saw a counselor yesterday. Today, he felt worse. He texted his counselor that he did not know what to do and the police were sent to his residence to check on him. He was brought for evaluation by police. The patient states that he has had some suicidal thoughts. He has thought about overdosing or using a firearm although, he has no access to firearms." the following note by the ED psychiatric case folder: "Pt was brought to the ED via police after his counselor at [facility] received a concerning e-mail and called police to check on him. The e-mail the pt sent said, Please help me. I dont know what to do The pt reported he did not receive an e-mail back from the counselor and that police showed up at his apartment and brought him to the ED. The counselor and police did not complete any 302 paperwork and the pt came willingly with police. The pt reported he has been struggling with depression for the past few months and has been feeling really sad. He reported difficulty sleeping, anhedonia, and a decreased appetite. His stressors are school, family issues, and some difficulties with his girlfriend. He reported over the past few days, he has developed SI and the thoughts have become severe. He admitted to thinking of plans to shoot himself or overdose. The patient does not own a firearm or have access to firearms. He reported he was researching ways to overdose and decided if he moved forward with his plan, he would overdose on Fentanyl. The pt is from [place] and is here going to [facility]. He is a sophomore studying eCareer. He reported school is stressful, but his grades are okay this semester. He lives in an off campus apartment with roommates. The pt stated his mother is somewhat aware of his depression right now and actually flew to [place] from [place] to be with him. She is currently staying in a hotel locally. The pt reported his mother is not aware of his SI w/a plan and she is not aware he is currently in the ED. He reported he does not wish for her to know at this time. The pt just started with [facility] this past week and he reported they are going t o help him find a long-term therapist. He does not see a psychiatrist and is not on any medications. He denied a history of suicide attempts or SIB. He has never had inpatient mental health treatment. He denied D&A use and does not smoke. He denied any hallucinations or HI. " and the following note by the psychiatric liaison nurse: "No hx of psychiatric treatment.Depressed for the last few months, constant thoughts of SI, plan to OD on fentanyl, or use a gun. Pt does not own a gun. Failed the spring semester at [employer], still a student there, however, his GPA won't be able to recover for him to pursue his major. He is very distraught about that, also having conflict with his girlfriend. His family all lives in [place], he has no supports in the . His mother unexpectedly arrived in the [facility], she is concerned about him d/t minimal contact recently. Pt was not wanting to notify mom about being at the hospital and going inpatient. He doesn't want to stress her out, feels like she is already stressed about his sister's recent miscarriage. Discussed how not telling his mom where he is could potentially cause her alarming concern. Pt did reach out to her while this RN was getting orders. Prior to leaving the ER, pts mom arrived to see him. Pt made minimal eye contact with mom, provided her limited responses to her questions, minimizing his mental health struggles and what brought him to the hospital. With pts verbal permission, this RN informed his mom what has been going on, pts increased depression with suicidal thoughts. Mom was tearful, asked appropriate questions and requested to speak with [place] alone. Gave her and pt a few minutes to speak in private, both were tearful after conversation and hugged prior to pt going to . " Review of the medical record reveals no previous or outside psychiatric records. Pt has no history of psychiatric treatment. Review of pertinent labs reveals they are significant for deficient vitamin D level of 16.4 ng/mL. A urine toxicology screen was negative for all tested substrates. BAL was <10 mg/dL. Pt endorses history essentially as above. He reports roughly 6-month history of deteriorating mood, loss of motivation, reduced interest, anhedonia, fatigue, worsening sleep with daytime hypersomnia. He says that despite feeling disinterested and unmotivated he has continued to play basketball and go to the gym, though does not enjoy these activities. He is "still getting up and getting dressed in the morning" but then goes back to bed rather than going to classes. He failed all his classses last semester. He feels as if he's derailed his life because his "GPA is too low to declare for cybersecurity" and he can't see where to go from here. He and his girlfriend broke up. He's vague and possibly evasive about the reasons, but attributes this to his "mood symptoms". Pt has been going online to read about methods of suicide. He'd thought about shooting himself or overdosing on fentanyl but has access to neither and can't figure out how to get access to either. He figured he could look up fatal doses of easily-obtainable medications or substances. Pt grew up in [place] (speaks Namibian, Luxembourgish, Mandarin, and Cantonese). His father co-owns a shipping company and his mother "is retired". He attended [employer] (a fairly prestigious private school in [place]) for his final 3 years of high school, so has not resided in [place] for about 5 years. His girlfriend is from [facility] and he says they knew each other there. Physical Exam Psychiatric Orientation: alert, oriented to person, oriented to place, oriented to time and cooperative Apperance: appropriately dressed, appropriately groomed and appeared stated age Eye Contact: + fair eye contact Motor Behavior: + psychomotor retardation Speech: + abnormal rate/rhythm/volume of speech (slow, quiet, brief) Affect: + blunted affect Mood: + depressed mood and + anxious mood Thought Process: linear/logical thought process Thought Content: reality based without delusions Suicidal Thoughts: denies suicidal plan and denies suicidal intent; + reports suicidal thoughts Homicidal Thoughts: denies homicidal thoughts Hallucinations: no auditory hallucinations and no visual hallucinations Cognition: recent memory grossly intact, remote memory grossly intact, attention grossly intact and language grossly intact Estimated Intelligence: average estimated intelligence Insight: + fair insight Judgment: + fair judgement Vital Signs (Past 24 Hours) Last Vital Signs Temp 36.7 C 03/07/23 06:00 Pulse 72 03/07/23 06:51 Resp 14 03/07/23 06:00 BP 118/74 03/07/23 06:51 Pulse Ox 95 03/07/23 06:00 O2 Del Method Room Air 03/07/23 06:00 Suicide risk at discharge is deemed low as the patient is no longer requiring 24-hr monitoring, has a safety plan, and is free of suicidal ideation at discharge. Principal Diagnosis Major Depressive Disorder, Single Episode, Severe, without Psychotic Features Psychiatric Data See daily stay summary. In short, safety was maintained and the patient was cooperative with care. Medication changes included initiation of duloxetine and titration to 60 mg as well as addition of ergocalciferol due to severe vitamin D deficiency and trazodone for sleep, and they tolerated this well. A family session was held and safety plan was completed prior to discharge. 03/06/2023: In contrast to last night, slept "pretty poorly" (nurses documented 4.75 hr) and feels tired today. He'd like to "try something else". Discussed trazodone for sleep, including rare risk of priapism. Back currently feels "fine". Rates current mood as "90%" on a scale where 100% is "completely normal for you", but only 60% if 100% represents "what you think your normal mood should be". He denies any hopelessness or suicidal thoughts. Has a family meeting tomorrow and he'd like to consider discharge following that. 03/05/2023: Slept "OK", thinks "melatonin is working". Remains laconic, reserved, but has been interacting a fair amount with peers. Back pain has "more or less" resolved, so have switched analgesics from schedul ed to PRN. Despite denying any spasms, pt asks about a muscle relaxer. Tolerating increased duloxetine 60 mg daily with no reported side effects so plan to continue this dose. 03/04/2023: Last night reported back pain to nurses and requested "something stronger" than acetaminophen. It started when he was sitting down in a chair. This morning he reported it was worse and prevented him from attending groups. He describes a "sharp" pain affecting nearly his entire back and is worsened by movement, though not by any specific movement. He denies having had such pain before. He moves gingerly getting out of bed but moves toward the exam room faster than I'm able to follow. He does not exhibit pain behavior when getting on exam table. No swelling, erythema, or other visible signs of inflammation on back. There is no point tenderness over spine or ribs. No trigger points are identified. No change in pain is reported on back flexion or extension, leaning to either side, or twisting in either direction. The same is true of neck movements. Raising his extended arms above the level of his shoulder reproduces the pain; no other arm movements do. Affect remains essentially flat, with slow, quiet, brief, and uninflected speech. He does think he slept better with melatonin and would like to continue it. He notes no side effects that he can attribute to duloxetine and would like to continue dose titration. 03/03/2023: Remains profoundly depressed, with nearly-flat affect. He has attended groups and interacted with peers (consistent with his reports of going to the gym and playing basketball because they were expectations and not because he felt motivated or interested). Says he has tolerated low-dose duloxetine without any side effects. He reports poor sleep with multiple awakenings. Discussed several options to address this at length. Pt says he's done well with melatonin 5 mg in the past (we have only 3 mg size here, so could give 6 mg). Day of Discharge Assessment Today the patient voices readiness for discharge. They note improvement in mood and deny thoughts to harm self or others. Thoughts remain organized and they are improved from admission. There is no evidence of psychosis. They agree to take mediations as prescribed and keep follow-up appointments. They are stable for discharge to outpatient level of care. Overall I spent a total of 33 minutes on the floor for this discharge including review of chart records, review of test results, direct evaluation of the patient [id number], counseling the patient, reconciling and ordering medication, medication education with the patient, risk assessment, discussion during interdisciplinary treatment rounds, and documentation in the electronic health record. Transition of Care Transition Of Care Record: was reviewed with the patient Advance Directives Advance Directives Information Provided: Yes Advance Directives: No Mental Health Advance Directive: No Advance Directives on File: No Living Will: No Power of Public Transit Bus Driver: No Advance Directives Reason:: Declines as Mental Health Visit. Suicide Risk Level Suicide Risk Level Comments: Suicide risk at discharge is deemed low as the patient is no longer requiring 24-hr monitoring, has a safety plan, and is free of suicidal ideation at discharge. Risk Factors Assessment Male: Yes : No Do You Have Access To A Gun?: No Health Problems: No Mental Health Diagnoses: No Substance Use Disorders: No Previous Attempt: No Family History of Suicide: No Previous Psychiatric Hospitalization: No Hopelessness: Yes Protective Factors Assessment : No Responsible for Young Children: No Employed: No Stable Relationships: Yes Supportive Family: Yes Good Rapport with Provider: Yes Tobacco Cessation at Discharge Tobacco Cessation Medication Prescribed at Discharge: Not Applicable/Non-Smoker Total Time Total Time Spent: Greater Than 30 Minutes (33) Total Time Includes: Examination of the patient, Discharge Planning, Medication Reconciliation and As well as (documentation) Discharge Data Lab Results 03/01/23 03/01/23 03/02/23 18:36 18:52 07:44 WBC 6.36 RBC 5.15 Hgb 15.3 Hct 45.0 MCV 87.4 MCH 29.7 MCHC 34.0 RDW Std Deviation 38.9 RDW Coeff of Miguel 12.1 Plt Count 264 MPV 8.4 L Immature Gran % (Auto) 0.2 Neut % (Auto) 61.5 Lymph % (Auto) 28.1 [place] % (Auto) 6.6 Eos % (Auto) 3.3 Baso % (Auto) 0.3 Neut # (Auto) 3.91 Lymph # (Auto) 1.79 [place] # (Auto) 0.42 Eos # (Auto) 0.21 Baso # (Auto) 0.02 Immature Gran # (Auto) 0.01 Sodium 137 Potassium 4.0 Chloride 103 Carbon Dioxide 26 Anion Gap 8 BUN 18 Creatinine 0.89 Est Cr Clr Drug Dosing 149.8 Est GFR ( Amer) 142.7 Est GFR (Non-Af Amer) 123.1 BUN/Creatinine Ratio 20.2 H Glucose 82 Calcium 9.8 Total Bilirubin 1.1 H AST 10 L ALT 7 Alkaline Phosphatase 88 Total Protein 7.9 Albumin 4.9 Globulin 3.0 Albumin/Globulin Ratio 1.6 Triglycerides 63 Cholesterol 154 LDL Cholesterol, Calc 97 VLDL Cholesterol, Calc 13 HDL Cholesterol 44 Cholesterol/HDL Ratio 3.5 Vitamin B12 386 25-OH Vitamin D Total 16.1 L Folate 7.92 TSH 2.322 Urine Color Yellow Urine Appearance Clear Urine pH 5.5 Ur Specific Fine 1.016 Urine Protein Negative Urine Glucose (UA) Negative Urine Ketones Negative Urine Blood Negative Urine Nitrite Negative Urine Bilirubin Negative Urine Urobilinogen Negative Ur Leukocyte Esterase Negative Salicylates < 3.0 L Urine Opiates Screen Neg Ur Methadone, Qual Neg Acetaminophen < 3 L Urine Barbiturates Neg Ur Phencyclidine (PCP) Neg U Amphetamin/Meth Scrn Neg MDMA (Ecstasy) Screen Neg U Benzodiazepines Scrn Neg Ur Cocaine Metabolite Neg U Marijuana (THC) Screen Neg Ethyl Alcohol mg/dL < 10.0 SARS-CoV-2, RNA, NAAT NEGATIVE Hospital Course (1) Major depressive disorder, single episode, severe without psychotic features: (2) HALIMA (generalized anxiety disorder): (3) Vitamin D deficiency: (4) Back pain: Plan 03/06/2023: * continue duloxetine 60 mg daily - increased 03/04/2023, increased 03/03/2023 to 40 mg, started 03/02/2023 at 20 mg * stop melatonin 5 mg QHS * trial trazodone 100 mg QHS with repeat of 50 mg if not asleep within 1 hour * continue ergocalciferol 50,000 IU twice weekly * continue naproxen 375 mg BID PRN * continue diclofenac gel to affected area BID PRN * family meeting tomorrow, likely followed by discharge 03/05/2023: * continue duloxetine 60 mg daily - increased 03/04/2023, increased 03/03/2023 to 40 mg, started 03/02/2023 at 20 mg * continue melatonin 5 mg QHS * continue ergocalciferol 50,000 IU twice weekly * change naproxen 375 mg BID from scheduled to PRN * change diclofenac gel to affected area BID from scheduled to PRN 03/04/2023: * increase duloxetine to 60 mg daily * continue melatonin 5 mg QHS * continue ergocalciferol 50,000 IU twice weekly * naproxen 375 mg BID * diclofenac gel to affected area BID 03/03/2023: * increase duloxetine to 40 mg daily, continue rapid titration to target of 60 mg daily * start melatonin 5 mg QHS * continue ergocalciferol 50,000 IU twice weekly 03/02/2023: The patient was admitted to the [facility] health [facility]) on q15 minute checks (behavioral with suicide precautions) for safety.The patient will participate in group, recreational, and milieu therapies and will be offered additional individual and family sessions as clinically appropriate. * start duloxetine 20 mg daily, titrate rapidly to target of 60 mg daily * start ergocalciferol 50,000 IU twice weekly Mental Health & Subst Abuse Tx Psychiatrist Name of Psychiatrist: Addie Ya Psychiatrist's Date Of Appointment With Psychiatric Provider: March 28, 2023 Time of Appointment with Psychiatrist: 2:15pm Psychiatric Appointment Comment: [address] [facility] [address] Therapist Name of Therapist: [facility] The[facility]'s Therapy Appointment Comment: [facility] [address] Store Shopper Name of Store Shopper: [facility] Phone Number for Store Shopper: [phone] Date of Appointment with Store Shopper: 03/11/23 Time of Appointment with Store Shopper: 10 AM Case Management Appointment Comment: Please check U email for Zoom link. Post Discharge Appointments Primary Care Physician Name Of Family Doctor/PCP: [facility] Time of Appointment with PCP: Please follow up with primary care provider as needed. Provider Appointment Comment: [place] [address] Smoking Cessation Counseling Tobacco Cessation Medication Prescribed at Discharge: Not Applicable/Non-Smoker Discharge Plan Discharge Items Patient Disposition: Home - Self-Care Reason For Visit: UNSPECIFIED DEPRESSIVE DISORDER Discharge Diagnosis: Major Depressive Disorder, Single Episode, Severe, without Psychotic Features Condition on Discharge: Good Activity: Resume your previous activity Lifting: Gradually increase as tolerated Non-emergency contact: Primary Care Provider and Psychiatrist Call non-emergency contact if: you have any medication questions and your symptoms worsen Follow-up/Referrals: PCP,NO [Primary Care Provider] - Diet: Regular Addtl Attending Provider Instructions: SPECIAL CARE INSTRUCTIONS: 1. Follow through with your scheduled aftercare appointments. If unable to keep an appointment, please call to reschedule. 2. Take your medication only as prescribed. Medication should not be changed or stopped without the approval of your doctor. In the event of worsening symptoms or concerns about side effects, contact your doctor immediately. 3. Utilize new healthy coping skills, anger management skills, and stress management skills learned during your hospitalization. Journal feelings and process them with a support person. Identify stressors or situations that may result in relapse, deterioration or inappropriate behaviors and develop a plan to deal with those issues. 4. If your coping skills are ineffective and you are in crisis, contact your outpatient providers for direction. If unable to reach your providers, please call the [facility] CRISIS LINE AT , go to the [facility] walk-in center at [address] [place] [address] A, [place], or go to the closest Emergency Room. 5. Avoid alcohol and un-prescribed drugs. 6. You have been provided with the Mental Health Advance Directives Pamphlet for your review. 7. Your condition is stable for discharge to outpatient level of care, but recovery is an ongoing process. Ifthoughts to harm yourself or others return, follow the safety plan developed during your stay. Planning for a safe return home includes securing weapons. Our treatment team recommends weaponsbe removed from the home until your outpatient provider reassesses your progress. In rare cases where the items themselvescannot be removed, guns and ammunitionshould be secured separatelyand keys stored by a reliable personoutside of the home. If you were admitted on an involuntary commitment, the police or other legal authorities may be involved in this process. AFTERCARE APPOINTMENTS: * Please call your insurance company prior to your scheduled appointment to confirm your aftercare providers are covered. Take your insurance information to your appointments. WHO TO CALL AND WHEN: Medical Emergencies: For questions or emergencies related to your hospital stay, please contact the Inpatient Behavioral Health Unit at [phone]. A mrb engineer is on-call 14/10 for the Behavioral Health Unit for emergencies At any time you feel your situation is an emergency, you may also call 911 immediately. VITAMIN D For your severe Vitamin D deficiency, continue prescription Vitamin D2 (ergocalciferol) 50,000 IU one capsule by mouth twice a week for 8 weeks. When the prescription Vitamin D2 is finished, start [id number] Vitamin D3 (cholecalciferol) 5,000 IU one capsule by mouth every day. After a month of daily Vitamin D3 5,000 IU you should have your Vitamin D level re-checked. Pending Studies at Discharge: No Stand-Alone Forms: My [facility] Medications and DC Order Prescriptions: New trazodone 100 mg Tablet 100 mg PO HS PRN (Reason: insomnia) 30 Days Qty: 30 0RF ergocalciferol (vitamin D2) 1,250 mcg (50,000 unit) Capsule 50,000 unit PO SuWe@0900 60 Days Qty: 15 0RF duloxetine 60 mg Capsule,Delayed Release(Dr/Ec) 60 mg PO QAM 30 Days Qty: 30 0RF Discharge Orders: Discharge Order (Routine); Ordered 03/07/23 Ordered By: Neo Tian Admission Data Admit Date/Time: 03/01/23 22:08 Attending Provider: Neo Tian Admit Provider: Neo Tian Primary Care Provider: PC[facility]AR[facility] Coding Level of Care Code 28409 D/C day mgmt > 30 min Diagnoses Major depressive disorder, single episode, severe without psychotic features F32.2 HALIMA (generalized anxiety disorder) F41.1 Vitamin D deficiency E55.9 Acute bilateral back pain, unspecified back location M54.9 Back pain laterality: bilateral Back pain location: back pain in unspecified location Chronicity: acute Time Spent (min) 33
== END 2023-03-07 13:45 | disposition home or self-care (01) | DRG 885 ==
LOC: ED 18:20 → 3S 22:08